=== PATIENT | female | born 1955 | race Caucasian/White ===

== ENCOUNTER 2016-12-01 13:38 | Outpatient (CLI) | payer OTHER ==
[2016-12-01 16:31] LABS: ALT (SGPT) 13 U/L (8-55); AST (SGOT) 15 U/L (5-34); Albumin 4.2 g/dL (3.4-4.8); Alkaline Phosphatase 81 U/L (40-150); Anion Gap 15 mmol/L (10-20); BUN (Urea Nitrogen) 13 mg/dL (9.8-20.1); Bilirubin, Total 0.7 mg/dL (0.2-1.2); Calc. Creatinine Clearance 0 mL/min (70-130); Calcium 8.9 mg/dL (7.8-10.44); Carbon Dioxide 25 mmol/L (23-31); Cardiac Risk 4.7 (Less than 4.5); Chloride 104 mmol/L (98-107); Cholesterol 198 mg/dl (< 200 Desired); Estimated GFR-MDRD Greater than 90; Globulin 2.7 g/dL (2.4-3.5); Glucose 98 mg/dL (80-115); HDL Cholesterol 42 mg/dL (>60 Neg Risk); LDL Cholesterol, Calculated 128 mg/dL; Potassium 4.5 mmol/L (3.5-5.1); Protein, Total 6.9 g/dL (6.0-8.3); Sodium 139 mmol/L (136-145); Triglycerides 140 mg/dL (Less than 150)
[2016-12-01 18:28] LABS: Band 1 % (5-11); Eosinophils 1 % (0-10); Hemoglobin 16.1 g/dL (12.0-16.0); Lymphocytes 17 % (21-51); MDiff Complete? YES; Mean Corpuscular HGB CONC 34.1 g/dL (32.0-36.0); Mean Corpuscular Hemoglobin 32.9 pg (27.0-31.0); Mean Corpuscular Volume 96.4 fl (81.0-99.0); Mean Platelet Volume 6.9 fL (7.4-10.4); Monocytes 12 % (0-10); Neutrophil 69 % (42-75); Platelet Count 243 thou/uL (130-400); RBC Distribution Width 13.2 % (11.5-14.5); White Blood Cell (WBC) Count 7.1 thou/uL (4.8-10.8)
[2016-12-01 18:50] LABS: Hemoglobin A1c 5.4 % (4.0-6.0)
== END 2016-12-01 13:39 ==
LOC: LABLEX 13:38
PROVIDERS: ATTEND Family Medicine
DX: E78.5 Hyperlipidemia, unspecified (principal); R55 Syncope and collapse; I10 Essential (primary) hypertension; G47.33 Obstructive sleep apnea (adult) (pediatric); F41.1 Generalized anxiety disorder
CPT/HCPCS: 80053; 80061; 83036; 84443; 85025

== ENCOUNTER 2017-02-01 12:05 | Outpatient (CLI) | payer OTHER ==
[2017-02-01 16:51] LABS: Eosinophils 2 % (0-10); Hemoglobin 15.5 g/dL (12.0-16.0); Lymphocytes 23 % (21-51); MDiff Complete? YES; Mean Corpuscular Hemoglobin 32.4 pg (27.0-31.0); Mean Corpuscular Volume 95.4 fl (81.0-99.0); Monocytes 6 % (0-10); Neutrophil 68 % (42-75); Platelet Count 245 thou/uL (130-400); RBC Distribution Width 13.3 % (11.5-14.5); Reactive Lymphocytes 1 % (0-10); Red Blood Cell (RBC) Count 4.79 mill/uL (4.20-5.40)
== END 2017-02-01 12:06 | disposition home or self-care (01) ==
LOC: LABLEX 12:05
PROVIDERS: ATTEND Family Medicine
DX: D58.2 Other hemoglobinopathies (principal)
CPT/HCPCS: 85025

== ENCOUNTER 2022-12-18 21:11 | Emergency (ER) | payer OTHER ==
[~2022-12-18 21:11] MED LIST: Iopamidol 370 76% 100 ML VIAL ONE
[2022-12-18 21:30] LABS: Hemoglobin 17.7 g/dL (12.0-16.0); Mean Corpuscular HGB CONC 34.2 g/dL (32.0-36.0); Mean Corpuscular Hemoglobin 32.5 pg (27.0-31.0); Mean Platelet Volume 6.9 fL (7.4-10.4); Platelet Count 266 10x3/uL (130-400); RBC Distribution Width 13.8 % (11.5-14.5); Red Blood Cell (RBC) Count 5.47 mill/uL (4.20-5.40); White Blood Cell (WBC) Count 21.1 10x3/uL (4.8-10.8)
[2022-12-18 21:44] LABS: Base Excess-Venous -3.9 mmol/L (-2.0 to 3.0); Bicarbonate (HCO3v) 21.7 mmol/L (22.0-28.0); CO2 Tension (PvCO2) 40.7 mmHg (42.0-51.0); Calcium, Ionized 1.06 mmol/L (1.15-1.33); Chloride 103 mmol/L (98-107); Hemoglobin - Calc 18.4 g/dL (12.0-16.0); Potassium 3.3 mmol/L (3.5-5.1); Sodium 139 mmol/L (138-145); vO2 Saturation-calc 67.1 % (60.0-85.0)
[2022-12-18 21:46] LABS: PTT 25.1 sec (22.9-36.1); Prothrombin Time 13.4 sec (12.0-14.7)
[2022-12-18 21:53] LABS: Lymphocytes 13 % (21-51); MDiff Complete? YES; Monocytes 2 % (0-10); Neutrophil 85 % (42-75); Platelet Adequacy Comment Appears Adequate
[2022-12-18 21:56] LABS: ALT (SGPT) 18 U/L (8-55); AST (SGOT) 21 U/L (5-34); Albumin 4.5 g/dL (3.4-4.8); Alkaline Phosphatase 104 U/L (40-110); Anion Gap 19 mmol/L (10-20); BUN (Urea Nitrogen) 12 mg/dL (9.8-20.1); Bilirubin, Total 0.7 mg/dL (0.2-1.2); Calc. Creatinine Clearance 0 mL/min (70-130); Calcium 9.9 mg/dL (7.8-10.44); Carbon Dioxide 19 mmol/L (23-31); Chloride 103 mmol/L (98-107); Estimated GFR 81; Globulin 3.6 g/dL (2.4-3.5); Glucose 175 mg/dL (80-115); Potassium 3.4 mmol/L (3.5-5.1); Protein, Total 8.1 g/dL (5.8-8.1); Sodium 138 mmol/L (136-145)
[2022-12-18] MEDS ORDERED: cefTRIAXone (ROCEPHIN) 1 GM VIAL ONE (22:03)
[2022-12-18] MEDS ORDERED: Sodium Chloride 0.9% 100 ML ONE (22:04)
[2022-12-18] MEDS ORDERED: Tenecteplase 50 MG ONE (22:36)
== END 2022-12-18 22:20 | disposition short-term general hospital (02) ==
LOC: BURERS 21:11
DX: I63.9 Cerebral infarction, unspecified (principal)
CPT/HCPCS: 36415; 36416; 70450; 70496; 70498; 80053; 80307; 82330; 82803; 84484; 85025; 85610; 85730; 93005; 96374; 96375; J0696; J3101; J3490; Q9967